=== PATIENT | male | born 1995 | race Caucasian/White ===

== ENCOUNTER 2016-12-11 22:57 | Emergency (ER) | payer BC ==
[~2016-12-11] VITALS: Ht 172.7 cm; Wt 75.5 kg
[~2016-12-11 22:57] MED LIST: ALBU18HF INHALATION; AMP500; AZIT250T94 PO; DICY10CA60 PO; GUAI120S26 PO; IBUP-1542 PO; IBUP800T25 PO; MOTS PO; ONDA4TAB35 PO; [UNRECOGNIZED DRUG - CODE]
[2016-12-11 23:05] VITALS: Ht 172.7 cm; Wt 75.5 kg
[2016-12-12] MEDS ORDERED: ONDANSETRON (ODT) 4 MG TAB ODT STA (00:40)
[2016-12-12] MEDS ORDERED: ACETAMINOPHEN 500 MG TAB PO STA (00:40)
[2016-12-12] MEDS ORDERED: ONDA4TAB14 PO (01:36)
[2016-12-12] MEDS ORDERED: ACET500C5 PO (01:36)
--- NOTE | 2016-12-12 01:38 | ERD ---
ER Documentation Chief Complaint Date/Time DATE: 12/12/16 TIME: 01:37 Chief Complaint fever on and off HPI The patient is a 21-year-old male here with his mom for 2 days of intermittent fever. His fever yesterday at home was 102. He also has a mildly productive cough of yellow sputum and mild intermittent nausea. He denies vomiting, diarrhea, chest pain, difficulty breathing, shortness of breath, flank pain, dysuria, headache, sinus pain, ear pain, decreased appetite, or any other symptoms or concerns. Positive sick contacts. Denies smoking. Denies international travel. He has a history of asthma and states that he has not needed to use his inhaler in over 1 year. ROS All systems reviewed and are negative except as per history of present illness. Medications Home Meds Active Scripts Albuterol Sulfate* (Ventolin HFA*) 18 Gm Hfa.aer.ad, 2 PUFF INHALATION Q6H, #1 INHALER Prov:CARINA LEI, LUCINDA 12/12/16 Ondansetron (Ondansetron Odt) 4 Mg Tab.rapdis, 4 MG PO Q6H Y for NAUSEA AND/OR VOMITING, #6 TAB Prov:CARINA LEI, LUCINDA 12/12/16 Acetaminophen* (Tylophen*) 500 Mg Capsule, 2 CAP PO Q8H Y for PAIN AND OR ELEVATED TEMP, #20 CAP Prov:CARINA LEI, BIOSOLIDS MANAGEMENT TECHNICIAN 12/12/16 Albuterol Sulfate* (Ventolin HFA*) 18 Gm Hfa.aer.ad, 2 PUFF INHALATION Q4H, #1 INHALER Prov:MORIAH HYMAN MD 10/16/16 Ibuprofen* (Motrin*) 800 Mg Tab, 800 MG PO Q6H Y for PAIN AND OR ELEVATED TEMP, #30 TAB Prov:MORIAH HYMAN MD 10/16/16 Azithromycin* (Zithromax*) 250 Mg Tablet, 250 MG PO .ZPACK DIRECTED, #6 TAB TAKE 500 MG (2 TABS) THE FIRST DAY THEN 250 MG (1 TAB) DAYS 2-5 Prov:MORIAH HYMAN MD 10/16/16 Ibuprofen* (Ibuprofen*) 600 Mg Tablet, 600 MG PO Q6H Y for PAIN AND OR ELEVATED TEMP, #30 TAB Prov:BRIAN HECK BIOSOLIDS MANAGEMENT TECHNICIAN 10/20/15 Iqblcmctimn-D-Ipzpzurhpk Hb* (Guaifenesin* DM Syrup) 120 Ml Syrup, 10 ML PO Q4H Y for COUGH, #120 ML Prov:BRIAN HECK BIOSOLIDS MANAGEMENT TECHNICIAN 10/20/15 Ondansetron Hcl* (Zofran* ODT) 4 mg -ODT Tab.disper, 4 MG PO Q8 Y for NAUSEA AND OR VOMITING, #30 TAB Prov:BRIAN HECK BIOSOLIDS MANAGEMENT TECHNICIAN 10/20/15 Dicyclomine Hcl* (Bentyl*) 10 Mg Capsule, 10 MG PO QID, #30 CAP Prov:BRIAN HECK BIOSOLIDS MANAGEMENT TECHNICIAN 10/20/15 Reported Medications Ibuprofen (MOTRIN LIQUID (PED)) Unknown Strength Oral.susp, PO Q6H Y for PAIN AND OR ELEVATED TEMP, #4 OZ 10/20/15 Ampicillin* (Ampicillin*) 500 Mg Cap 07/31/10 Bismuth Subsalicylate (Pepto-Bismol) 262 Mg Tablet 07/31/10 Allergies Allergies: Coded Allergies: No Known Drug Allergy (Verified Allergy, Mild, 05/12/14) PMhx/Soc Medical and Surgical Hx: pt denies Surgical Hx History of Surgery: No Anesthesia Reaction: No Hx Neurological Disorder: No Hx Respiratory Disorders: Yes (ASTHMA,) Hx Cardiac Disorders: No Hx Psychiatric Problems: Yes (depression) Hx Miscellaneous Medical Probl: No Hx Alcohol Use: No Hx Substance Use: No Hx Tobacco Use: No Smoking Status: Never smoker Physical Exam Vitals Vital Signs Date Time Temp Pulse Resp B/P Pulse Ox O2 Delivery O2 Flow Rate FiO2 12/12/16 01:18 99.2 78 17 111/72 100 Room Air 12/11/16 23:05 100.3 91 18 109/58 98 Physical Exam INITIAL VITAL SIGNS: Reviewed by me, to measure 100.3, no tachycardia, no tachypnea, oximetry 98% on room air GENERAL: Alert. Well developed and well nourished. No acute distress. Nontoxic appearing. HEAD: Head is normocephalic. Atraumatic. EYES: EOMI. PERRL. No scleral icterus. No conjunctival injection. No clear or purulent drainage. ENT: External ears, nose, and mouth normal. Ear canals clear. Tympanic membranes without erythema, bulging, or effusion. Nasal passages patent and without rhinorrhea. Oropharynx clear without erythema or exudates. Tonsils +2 and without erythema or exudates. Moist mucous membranes. NECK: Supple. Full range of motion. Trachea midline. No lymphadenopathy. No meningismus. RESPIRATORY: No tachypnea. Clear to auscultation bilaterally. No wheezing, rales , or rhonchi. CV: Regular rate and rhythm. No murmurs, rubs, or gallops ABDOMEN: Soft, non-distended, non-tender. No guarding. Bowel sounds normal in all quadrants. BACK: No CVA tenderness. Full ROM. EXTREMITIES: No obvious deformity. No clubbing or cyanosis. No edema. SKIN: Warm and dry. No diaphoresis. No obvious rashes or lesions. NEUROLOGIC: Alert and oriented x 3. Appropriate. Face is symmetric. Speech is normal. Moves all extremities equally. Results 24 hrs Current Medications Medications (Trade) Dose Ordered Sig/Fiona Route PRN Reason Start Time Stop Time Status Last Admin Dose Admin Acetaminophen (Tylenol Tab) 1,000 mg ONCE STAT PO 12/12/16 00:40 12/12/16 00:41 DC 12/12/16 00:53 Ondansetron HCl (Zofran Odt) 4 mg ONCE STAT ODT 12/12/16 00:40 12/12/16 00:41 DC 12/12/16 00:53 Procedures/MDM Nursing Notes Reviewed Previous Medical Records requested via [employer]. EMERGENCY DEPARTMENT COURSE / MEDICAL DECISION MAKING: The patient comes to the ED secondary to intermittent fever, productive cough of yellow sputum, nausea since yesterday. Differential diagnosis upon initial evaluation includes but is not limited to: viral syndrome, URI, bronchitis, pneumonia, asthma exacerbation, meningitis, sepsis, and others The patient was treated with Tylenol and Zofran by mouth. On reassessment, i took the patient's temperature and it was 98.5 and his heart rate was 70. He was able to easily tolerate liquids by mouth with no nausea or vomiting. He reports that he feels much better and wishes to be discharged home at this time. He states that he is hungry for a hamburger. I have advised him to please advance his diet slowly as he has had intermittent nausea over the last 2 days. He verbalized understanding and agreed. His repeat physical exam was benign. His lungs were clear to auscultation bilaterally. He is well-appearing and nontoxic, oximetry 98% on room air, afebrile, and in no respiratory distress, benign physical exam, short duration of symptoms, no neck soreness or stiffness. As such, I have low suspicion for bronchitis, pneumonia, asthma exacerbation, meningitis, sepsis, or other serious cause of the patient's symptoms. Final impression: URI Based on patient's history of present illness and physical examination the decision was made to discharge. The patient was re-evaluated after ED treatment and stabilizing measures, and symptoms have improved. There is no evidence of life threatening injuries or illnesses at this time. On re-examination, patient resting in no distress, stable vital signs, reports feeling better and safe for discharge with outpatient follow up with PMD in 1-2 days. Patient given return precautions. He verbalized understanding and agreed to return precautions. I'll prescribe him Ventolin as he does not have an inhaler at home. Prescriptions Tylenol Zofran Ventolin Departure Diagnosis: Primary Impression: Viral syndrome Condition: Stable Patient Instructions: Viral Syndrome (Adult) Additional Instructions: Call your primary care doctor TOMORROW for an appointment during the next 1-2 days.See the doctor sooner or return here if your condition worsens before your appointment time. CARINA LEI NP Dec 12, 2016 01:38
[2016-12-12] MEDS ORDERED: ALBU18HF INHALATION (01:39)
[2016-12-12 01:50] VITALS: BP 111/72; PULSE 70; RESP 17; TEMP 98.5
== END 2016-12-12 02:05 | disposition home or self-care (01) ==
LOC: FTE 22:57
DX: B34.9 Viral infection, unspecified (principal); J45.909 Unspecified asthma, uncomplicated; R11.0 Nausea
CPT/HCPCS: Z7610 ×2; 99284

== ENCOUNTER 2017-08-13 19:20 | Emergency (ER) | payer BC ==
[~2017-08-13] VITALS: Ht 175.3 cm; Wt 77.0 kg
[~2017-08-13 19:20] MED LIST changes: +ACET500C5 PO; -AMP500; +AMPI500C9; +ONDA4TAB14 PO
[2017-08-13 19:23] VITALS: Ht 175.3 cm; Wt 77.0 kg
[2017-08-13] MEDS ORDERED: ACETAMINOPHEN 500 MG TAB PO STA (19:40)
[2017-08-13] MEDS ORDERED: ONDANSETRON (ODT) 4 MG TAB ODT STA (19:40)
--- NOTE | 2017-08-13 19:51 | ERD ---
ER Documentation Chief Complaint Date/Time DATE: 08/13/17 TIME: 19:49 Chief Complaint c/o n/v/d since a.m. HPI 22-year-old male presents to the emergency department complaining of nausea, nonbilious nonbloody vomiting and nonbloody diarrhea since this morning. Patient denies any abdominal pain. Denies medications ROS All systems reviewed and are negative except as per history of present illness. Medications Home Meds Active Scripts Albuterol Sulfate* (Ventolin HFA*) 18 Gm Hfa.aer.ad, 2 PUFF INHALATION Q6H, #1 INHALER Prov:CARINA LEI, LUCINDA 12/12/16 Ondansetron (Ondansetron Odt) 4 Mg Tab.rapdis, 4 MG PO Q6H Y for NAUSEA AND/OR VOMITING, #6 TAB Prov:CARINA LEI NP 12/12/16 Acetaminophen* (Tylophen*) 500 Mg Capsule, 2 CAP PO Q8H Y for PAIN AND OR ELEVATED TEMP, #20 CAP Prov:CARINA LEI NP 12/12/16 Albuterol Sulfate* (Ventolin HFA*) 18 Gm Hfa.aer.ad, 2 PUFF INHALATION Q4H, #1 INHALER Prov:MORIAH HYMAN MD 10/16/16 Ibuprofen* (Motrin*) 800 Mg Tab, 800 MG PO Q6H Y for PAIN AND OR ELEVATED TEMP, #30 TAB Prov:MORIAH HYMAN MD 10/16/16 Azithromycin* (Zithromax*) 250 Mg Tablet, 250 MG PO .ZPACK DIRECTED, #6 TAB TAKE 500 MG (2 TABS) THE FIRST DAY THEN 250 MG (1 TAB) DAYS 2-5 Prov:MORIAH HYMAN MD 10/16/16 Ibuprofen* (Ibuprofen*) 600 Mg Tablet, 600 MG PO Q6H Y for PAIN AND OR ELEVATED TEMP, #30 TAB Prov:BRIAN HECK NP 10/20/15 Kxofzzziukk-N-Zbcsbulfnm Hb* (Guaifenesin* DM Syrup) 120 Ml Syrup, 10 ML PO Q4H Y for COUGH, #120 ML Prov:BRIAN HECK NP 10/20/15 Ondansetron Hcl* (Zofran* ODT) 4 mg -ODT Tab.disper, 4 MG PO Q8 Y for NAUSEA AND OR VOMITING, #30 TAB Prov:BRIAN HECK NP 10/20/15 Dicyclomine Hcl* (Bentyl*) 10 Mg Capsule, 10 MG PO QID, #30 CAP Prov:BRIAN HECK NP 10/20/15 Reported Medications Ibuprofen (MOTRIN LIQUID (PED)) Unknown Strength Oral.susp, PO Q6H Y for PAIN AND OR ELEVATED TEMP, #4 OZ 10/20/15 Ampicillin* (Ampicillin*) 500 Mg Cap 07/31/10 Bismuth Subsalicylate (Pepto-Bismol) 262 Mg Tablet 07/31/10 Allergies Allergies: Coded Allergies: No Known Drug Allergy (Verified Allergy, Mild, 05/12/14) PMhx/Soc Medical and Surgical Hx: pt denies Surgical Hx History of Surgery: No Anesthesia Reaction: No Hx Neurological Disorder: No Hx Respiratory Disorders: Yes (ASTHMA,) Hx Cardiac Disorders: No Hx Psychiatric Problems: Yes (depression) Hx Miscellaneous Medical Probl: No Hx Alcohol Use: No Hx Substance Use: No Hx Tobacco Use: No Physical Exam Vitals Vital Signs Date Time Temp Pulse Resp B/P Pulse Ox O2 Delivery O2 Flow Rate FiO2 08/13/17 19:23 1005.1 81 18 131/73 100 Physical Exam GENERAL: well-developed/well-nourished, in no apparent distress, non-toxic appearing HENT: NC/AT, moist mucous membranes EYES: Conjunctiva normal NECK: Supple, no lymphadenopathy PULM: CTA bilaterally, no rales, rhonchi, or wheezing heard CV: Normal S1S2, RRR, good capillary refill GI: Soft, non-distended, tender to palpation in all quadrants Normal bowel sounds, no masses or organomegaly felt on exam No gross peritonitis, no bruits Negative Rovsing, negative Spangler, negative McBurney's point, Negative CVAT BACK: No masses EXT: No clubbing, cyanosis, or edema NEURO: Alert and Orientated SKIN: Intact, normal turgor PSYCH: Normal mood and mentation Results 24 hrs Current Medications Medications (Trade) Dose Ordered Sig/Fiona Route PRN Reason Start Time Stop Time Status Last Admin Dose Admin Acetaminophen (Tylenol Tab) 1,000 mg ONCE STAT PO 08/13/17 19:40 08/13/17 19:43 DC Ondansetron HCl (Zofran Odt) 8 mg ONCE STAT ODT 08/13/17 19:40 08/13/17 19:43 DC Procedures/MDM This is a 22-year-old male presenting to the emergency department complaining of nausea vomiting diarrhea likely viral gastritis or food poisoning. Patient appears well and stable to be discharged home. There was no evidence of appendicitis, diverticulitis or acute abdominal conditions. In the ED, patient was given Tylenol, Zofran and pass a fluid challenge test. Patient was given return precautions. He understands and agrees with plan Departure Diagnosis: Primary Impression: Vomiting and diarrhea Condition: Stable CANDE CISSE PA-C Aug 13, 2017 19:50
[2017-08-13] MEDS ORDERED: ONDA8TAB14 PO (19:52)
[2017-08-13] MEDS ORDERED: ACET325T33 PO (19:52)
== END 2017-08-13 20:17 | disposition home or self-care (01) ==
LOC: FTE 19:20
DX: R11.10 Vomiting, unspecified (principal); R19.7 Diarrhea, unspecified; J45.909 Unspecified asthma, uncomplicated
CPT/HCPCS: 99283; Z7610